=== PATIENT | male | born 1960 | race Caucasian/White ===

== ENCOUNTER → 2021-01-11 13:24 | Outpatient (CLI) | payer BC, SELFPAY ==
--- NOTE | ~2021-01-11 | XR_ITS ---
XR chest 2V DATE: 01/11/2021 13:52 INDICATION: Cough TECHNIQUE: 2 views COMPARISON: None FINDINGS: Normal heart size. No hilar or mediastinal enlargement. No pulmonary infiltrate or consolid ation, pleural effusion or pulmonary vascular congestion or pneumothorax. IMPRESSION: No active cardiopulmonary disease Reviewed, dictated and finalized at location B.
== END ==
PROVIDERS: Visit Provider Nurse Practitioner
DX: R05 Cough (principal)
CPT/HCPCS: 71046